=== PATIENT | female | born 1990 | race Caucasian/White ===

== ENCOUNTER 2018-08-04 06:10 | Inpatient (IN) | payer BC, OTHER ==
[~2018-08-04] VITALS: Ht 165.1 cm; Wt 122.0 kg
[~2018-08-04 06:10] MED LIST: AZIT250 PO; DOCU100 PO; IBUP800 PO; LANS30EC; Verotin-Gr Cap1 EACH PO
[2018-08-04] MEDS ORDERED: LABE200 PO (06:43)
[2018-08-04] MEDS ORDERED: FLAX PO (06:43)
[2018-08-04] MEDS ORDERED: CHOL10002 (06:44)
[2018-08-04 07:45] LABS: BASOPHILS ABSOLUTE AUTO 0.01 K/mm3 (0.00-0.23); BASOPHILS PERCENT AUTO 0 % (0-2); EOSINOPHILS ABSOLUTE AUTO 0.08 K/mm3 (0.00-0.68); EOSINOPHILS PERCENT AUTO 1 % (0-6); Hematocrit 37.9 % (33.0-51.0); IMMATURE GRAN ABSOLUTE AUTO 0.04 K/mm3 (0.00-0.10); IMMATURE GRAN PERCENT AUTO 1 % (0-1); LYMPHOCYTES PERCENT AUTO 18 % (21-46); MONOCYTES ABSOLUTE AUTO 0.55 K/mm3 (0.16-1.47); MONOCYTES PERCENT AUTO 7 % (4-13); Mean Corpuscular HGB 32.7 pg (26.0-34.0); Mean Corpuscular HGB Conc 34.3 g/dL (31.5-36.5); Mean Corpuscular Volume 96 fL (80-100); Mean Platelet Volume 10.5 fL (9.1-12.4); NEUTROPHILS ABSOLUTE AUTO 5.71 K/mm3 (1.96-9.15); NEUTROPHILS PERCENT AUTO 73 % (41-73); Platelet Count 244 K/mm3 (150-400); RDW Coefficient Variation 12.6 % (11.7-14.2); RDW Standard Deviation 43.8 fL (35.1-46.3); Red Blood Cell Count 3.97 M/mm3 (3.80-5.20); White Blood Cell Count 7.79 K/mm3 (4.00-11.30)
[2018-08-04 08:25] LABS: Alanine Aminotransfer (ALT/SGP 21 U/L (12-78); Albumin, Blood 2.7 g/dL (3.4-5.0); Albumin/Globulin Ratio 0.8 (0.8-1.8); Alk Phos 156 U/L (50-136); Anion Gap 11 mmol/L (6-16); Aspartate Aminotrans (AST/SGOT 21 U/L (12-37); Bilirubin, Total 0.2 mg/dL (0.1-1.0); Blood Urea Nitrogen 10 mg/dL (8-24); Bun/Creatinine Ratio 20.3 (12.0-20.0); CO2, Blood 22 mmol/L (21-32); Calcium, Blood 8.6 mg/dL (8.5-10.1); Chloride, Blood 108 mmol/L (98-108); Creatinine, Blood 0.49 mg/dL (0.40-1.00); Globulin, Blood 3.5 g/dL (2.2-4.0); Glomerular Filtration Rate >60 (60-); Glucose, Blood 109 mg/dL (70-99); Potassium, Blood 3.8 mmol/L (3.5-5.5); Sodium, Blood 141 mmol/L (136-145); Total Protein, Blood 6.2 g/dL (6.4-8.2)
[2018-08-05 05:19] LABS: Hematocrit 31.4 % (33.0-51.0); Hemoglobin 10.5 g/dL (11.5-16.0); Mean Corpuscular HGB 31.6 pg (26.0-34.0); Mean Corpuscular HGB Conc 33.4 g/dL (31.5-36.5); Mean Corpuscular Volume 95 fL (80-100); Mean Platelet Volume 10.7 fL (9.1-12.4); Platelet Count 209 K/mm3 (150-400); RDW Coefficient Variation 12.7 % (11.7-14.2); RDW Standard Deviation 43.7 fL (35.1-46.3); Red Blood Cell Count 3.32 M/mm3 (3.80-5.20)
[2018-08-05] MEDS ORDERED: IBUP800 PO (17:31)
== END 2018-08-05 18:53 | disposition home or self-care (01) | DRG 806 ==
LOC: BC 06:10
PROVIDERS: Obstetrics & Gynecology
PROC: 10E0XZZ Delivery of Products of Conception, External Approach (ICD-10-PCS; principal; 2018-08-04)
PROC: 3E033VJ Introduction of Other Hormone into Peripheral Vein, Percutaneous Approach (ICD-10-PCS; 2018-08-04)
PROC: 10907ZC Drainage of Amniotic Fluid, Therapeutic from Products of Conception, Via Natural or Artificial Opening (ICD-10-PCS; 2018-08-04)
PROC: 0HQ9XZZ Repair Perineum Skin, External Approach (ICD-10-PCS; 2018-08-04)
DX: O30.043 Twin pregnancy, dichorionic/diamniotic, third trimester (principal); O10.92 Unspecified pre-existing hypertension complicating childbirth; Z37.2 Twins, both liveborn; O24.420 Gestational diabetes mellitus in childbirth, diet controlled; O99.824 Streptococcus B carrier state complicating childbirth; O70.0 First degree perineal laceration during delivery; Z3A.37 37 weeks gestation of pregnancy; Z79.899 Other long term (current) drug therapy; Z88.5 Allergy status to narcotic agent
CPT/HCPCS: 36415; 80053; 82947; 85025; 85027; J0290; J1885; J2210; J2590; J7120

== ENCOUNTER 2021-12-11 14:19 | Emergency (ER) | payer OTHER ==
[~2021-12-11] VITALS: Ht 165.1 cm; Wt 113.4 kg
[~2021-12-11 14:19] MED LIST changes: +CHOL10002; +FLAX PO; +LABE200 PO
[2021-12-11 14:49] LABS: BASOPHILS ABSOLUTE AUTO 0.04 K/mm3 (0.00-0.23); BASOPHILS PERCENT AUTO 0 % (0-2); EOSINOPHILS ABSOLUTE AUTO 0.02 K/mm3 (0.00-0.68); EOSINOPHILS PERCENT AUTO 0 % (0-6); Hematocrit 40.1 % (33.0-51.0); IMMATURE GRAN ABSOLUTE AUTO 0.08 K/mm3 (0.00-0.10); IMMATURE GRAN PERCENT AUTO 1 % (0-1); LYMPHOCYTES PERCENT AUTO 15 % (21-46); MONOCYTES ABSOLUTE AUTO 0.53 K/mm3 (0.16-1.47); MONOCYTES PERCENT AUTO 4 % (4-13); Mean Corpuscular HGB 30.2 pg (26.0-34.0); Mean Corpuscular HGB Conc 32.4 g/dL (31.5-36.5); Mean Corpuscular Volume 93 fL (80-100); Mean Platelet Volume 9.9 fL (9.1-12.4); NEUTROPHILS ABSOLUTE AUTO 10.21 K/mm3 (1.96-9.15); NEUTROPHILS PERCENT AUTO 80 % (41-73); Platelet Count 442 K/mm3 (150-400); RDW Coefficient Variation 12.8 % (11.7-14.2); RDW Standard Deviation 43.8 fL (35.1-46.3); Red Blood Cell Count 4.31 M/mm3 (3.80-5.20); White Blood Cell Count 12.78 K/mm3 (4.00-11.30)
[2021-12-11 15:04] LABS: Alanine Aminotransfer (ALT/SGP 30 U/L (12-78); Alk Phos 88 U/L (50-136); Anion Gap 9 mmol/L (6-16); Aspartate Aminotrans (AST/SGOT 15 U/L (12-37); Bilirubin, Total 0.3 mg/dL (0.1-1.0); Blood Urea Nitrogen 7 mg/dL (8-24); Bun/Creatinine Ratio 12.4 (12.0-20.0); CO2, Blood 25 mmol/L (21-32); Calcium, Blood 9.5 mg/dL (8.5-10.1); Chloride, Blood 105 mmol/L (98-108); Creatinine, Blood 0.57 mg/dL (0.40-1.00); Globulin, Blood 4.2 g/dL (2.2-4.0); Glomerular Filtration Rate >60 (60-); Glucose, Blood 177 mg/dL (70-99); Potassium, Blood 3.4 mmol/L (3.5-5.5); Sodium, Blood 139 mmol/L (136-145); Total Protein, Blood 8.2 g/dL (6.4-8.2)
[2021-12-11] MEDS ORDERED: Prinivil10 MG PO (16:43)
== END 2021-12-11 19:14 | disposition home or self-care (01) ==
LOC: ER 14:19
PROVIDERS: Physician Assistant
DX: R73.9 Hyperglycemia, unspecified (principal); R53.1 Weakness
CPT/HCPCS: 36415; 80053; 84443; 84484; 85025; 93005; 93010; 99285-25

== ENCOUNTER 2024-07-10 06:01 | Day surgery (SDC) | payer OTHER ==
[~2024-07-10] VITALS: Ht 164 cm; Wt 107.1 kg
[2024-07-10] VITALS (13 sets, daily range): BP systolic 124–155; BP diastolic 81–101
[~2024-07-10 06:01] MED LIST changes: +AMOCLA875 PO; +BENZ100A PO; +IRON FOLATE-F1 EACH PO; +KETO10 PO; +LIDO700A20 TOP; +LISI5 PO; +Norco 5-325 Ta1 EACH PO; +ONDA4ODT MM; +Zithromax250 MG PO
[2024-07-10] MEDS ORDERED: CeFAZolin Sodium 2,000 MG in NS 100 ML IV SCH (06:25)
[2024-07-10] MEDS ORDERED: Phenazopyridine HCl 100 MG Tab PO ONE (06:25)
[2024-07-10] MEDS ORDERED: Lactated Ringer's 1,000 ML IV SCH (06:25)
[2024-07-10] MEDS ORDERED: LISI5 PO (06:41)
[2024-07-10] MEDS ORDERED: FERROUS SULFAT325 M3 PO (06:42)
[2024-07-10] MEDS ORDERED: Bupivacaine 0.5% HCl 5 MG/ML 30MLVIAL ONE (07:14)
[2024-07-10] MEDS ORDERED: FentaNYL Citrate 50 MCG/ML 2 ML Injection ONE ×3 (07:18→10:02)
[2024-07-10] MEDS ORDERED: propofoL 20 ML IV ONE (07:18)
[2024-07-10] MEDS ORDERED: Rocuronium Bromide 10 MG/ML 5ML Injection IV ONE (07:19)
[2024-07-10] MEDS ORDERED: Lidocaine HCl 2% 20 ML MDV ONE (07:19)
[2024-07-10] MEDS ORDERED: Scopolamine Hydrobromide Patch TOP ONE (07:20)
[2024-07-10] MEDS ORDERED: Dexamethasone Sod Phos 10 MG/ML 1ML VIAL ONE (07:44)
[2024-07-10] MEDS ORDERED: Glycopyrrolate 0.2 MG/ML 5ML VIAL ONE (08:41)
[2024-07-10] MEDS ORDERED: Ondansetron HCl 2 MG / ML 2ML Vial ONE (09:10)
[2024-07-10] MEDS ORDERED: Sugammadex Sodium 200 MG/2ML SDV (100 MG/ML) ONE (09:10)
[2024-07-10] MEDS ORDERED: Ketorolac Tromethamine 30mg Vial ONE (10:01)
[2024-07-10] MEDS ORDERED: HYDROcodone 5-APAP 325 TAB PO PRN (10:15)
[2024-07-10] MEDS ORDERED: DiphenhydrAMINE HCL 25 MG Cap PO PRN (10:15)
[2024-07-10] MEDS ORDERED: HYDROmorphone HCl/Pf 1MG SYR IV PRN (10:15)
[2024-07-10] MEDS ORDERED: FLU VACC TS2024-25(6MOS UP)/PF 45 MCG/0.5 ML SYRINGE IM SCH (10:15)
[2024-07-10] MEDS ORDERED: HYDROcodone 10-APAP 325 TAB PO PRN (10:15)
[2024-07-10] MEDS ORDERED: Ondansetron HCl 2 MG / ML 2ML Vial IV PRN (10:20)
[2024-07-10] MEDS ORDERED: Simethicone 80 MG Chew PO PRN (10:20)
[2024-07-10] MEDS ORDERED: Metoclopramide HCl 10 MG Tab PO PRN (10:20)
[2024-07-10] MEDS ORDERED: Naloxone HCl 0.4MG / ML 1ML Vial IV PRN (10:20)
--- NOTE | 2024-07-10 10:52 | NUR ---
PT ARRIVED TO THE FLOOR VIA GOURNEY, SLID TO HOSPITAL BED. A&O X4, LAP SITES X4 C/D/I. NO BLOOD NOTED ON PAD AT THIS TIME. HEATING PLAD PLACED. SNACKS AND DRINKS AT BEDSIDE. BED IN LOWEST POSITION, CALL LIGHT WITHIN REACH.
[2024-07-10] MEDS ORDERED: Lisinopril 5 MG Tab PO ONE (11:15)
[2024-07-10] MEDS ORDERED: Acetaminophen 500 MG Tab PO SCH (12:00)
[2024-07-10] MEDS ORDERED: Ketorolac Tromethamine 30mg Vial IV SCH (12:00)
[2024-07-10] MEDS ORDERED: Norco 5-325 Ta1 EACH PO (13:23)
[2024-07-10] MEDS ORDERED: ACET325 PO (13:24)
[2024-07-10] MEDS ORDERED: IBUP400 PO (13:25)
--- NOTE | 2024-07-10 15:36 | NUR ---
D/C PT REPORTS MINIMAL PAIN 4-6/10, PAIN MANAGED W/1 NORCO, TYLENOL & IBPROPHEN. PT STATES SHE GETS NAUSEATED W/PAIN MEDS, THEREFORE PREMEDICATED W/ZOFRAN PRIOR TO PAIN MEDS. PT TOLERATED PO INTAKE, HAS BEEN UP MULTIPLE TIMES WALKING HALLS, HAS VOIDED, REPORTS GAS PAIN BETTER AFTER WALKING. ABD LAP SITES INTACT NO DRAINAGE NOTED. PT REQUESTING DC. WENT OVER DC PAPERWORK W/PT & , INFORMED PT ANY CONCERNS TO CALL DR CASILLAS'S OFFICE. PT LEFT FLOOR @[id number]
[2024-07-10] MEDS ORDERED: Ibuprofen 400 MG Tab PO SCH (16:00)
[2024-07-11] MEDS ORDERED: Polyethylene Glycol 3350 17 gm PO SCH (09:00)
[2024-07-11] MEDS ORDERED: Enoxaparin 40 MG/0.4 ML SYR SC SCH (09:00)
== END 2024-07-10 15:40 | disposition home or self-care (01) ==
LOC: ORSCMMR 06:01 → ORD 07:30 → ORSCMMR 07:30 → SURS 10:43 → ORSCMMR 15:40
PROVIDERS: Obstetrics & Gynecology
PROC: 0UT7FZZ Resection of Bilateral Fallopian Tubes, Via Natural or Artificial Opening With Percutaneous Endoscopic Assistance (ICD-10-PCS; principal; 2024-07-10 07:30)
PROC: 0UT9FZZ Resection of Uterus, Via Natural or Artificial Opening With Percutaneous Endoscopic Assistance (ICD-10-PCS; principal; 2024-07-10 07:30)
DX: N93.9 Abnormal uterine and vaginal bleeding, unspecified (principal); N94.6 Dysmenorrhea, unspecified; I10 Essential (primary) hypertension; Z79.899 Other long term (current) drug therapy; E66.01 Morbid (severe) obesity due to excess calories; Z68.41 Body mass index [BMI] 40.0-44.9, adult
CPT/HCPCS: 88307; A9270; J0690; J1100; J1170; J1171; J1885; J2405; J2704; J3010; J7120